=== PATIENT | female | born 1935 | race Caucasian/White ===

== ENCOUNTER → 2017-06-23 | Outpatient (CLI) | payer OTHER ==
[~2017-06-23] MED LIST: APAP650 PO; COUMADIN 5 MG TA5 M1 PO; TRAMADOL 50 MG50 MG PO; ZOCOR20 MG PO
== END ==
LOC: RAD 02:55
DX: Z12.31 Encounter for screening mammogram for malignant neoplasm of breast (principal)

== ENCOUNTER → 2018-06-30 | Outpatient (CLI) | payer OTHER | LOC: RAD 06-24 13:02 | DX: Z12.31 Encounter for screening mammogram for malignant neoplasm of breast (principal) ==

== ENCOUNTER → 2019-07-04 | Outpatient (CLI) | payer OTHER | LOC: RAD 07:53 | DX: Z12.31 Encounter for screening mammogram for malignant neoplasm of breast (principal) ==

== ENCOUNTER → 2020-07-08 | Outpatient (CLI) | payer OTHER | LOC: BC 07:53 | PROVIDERS: ATTEND Internal Medicine | DX: Z12.31 Encounter for screening mammogram for malignant neoplasm of breast (principal) ==

== ENCOUNTER → 2021-07-09 | Outpatient (CLI) | payer OTHER | LOC: BC 08:21 | PROVIDERS: ATTEND Internal Medicine | DX: Z12.31 Encounter for screening mammogram for malignant neoplasm of breast (principal) ==